=== PATIENT | male | born 1960 | race Caucasian/White ===

== ENCOUNTER 2016-11-14 11:32 | Emergency (ER) | payer OTHER ==
[~2016-11-14] VITALS: Ht 182.9 cm; Wt 136.1 kg
[~2016-11-14 11:32] MED LIST: ATORVASTATIN CA10 MG PO; BYSTOLIC 5MG5 MG PO; COMBIVENT1 ARO INH; COUMADIN5 M2 PO; ECOTRIN81 MG PO; FINASTERIDE5 MG PO; GLIPIZIDE XL10 MG PO; HYDROCODON-ACE1 EAC2 PO; IRON SUPPLEMEN325 MG PO; JANUVIA 50MG50 MG PO; LEVEMIR FLEX100 U/ML SC; LEVEMIR100 U/ML SC; LORAZEPAM1 MG PO; LOSARTAN POTAS100 MG PO; MAGNESIUM OXID400 MG PO; MEDROL4 M1 PO; METFORMIN ER500 MG PO; METFORMIN HYD1000 M1 PO; NATURAL IRON65 MG PO; NORVASC 5MG TAB5 MG PO; OXYBUTYNIN5 MG PO; OXYCODONE HCL5 M1 PO; PREVACID 30MG30 MG PO; RW; TERAZOSIN HCL10 MG PO; VALIUM5 M2 PO; ZOLPIDEM TART5 MG PO
--- NOTE | 2016-11-14 11:49 | ED GENERAL ADULT ---
History of Present Illness General Chief Complaint: Suture Removal/Wound Recheck Stated Complaint: SUTURE SITE RECHECK FOR INFECTION Source: patient Exam Limitations: no limitations Vital Signs & Intake/Output Vital Signs & Intake/Output Vital Signs Date Time Temp Pulse Resp B/P B/P Pulse O2 O2 Flow FiO2 Mean Ox Delivery Rate 11/14 1311 97.5 64 18 144/78 97 Room Air Room Air 11/14 1138 97.1 60 18 152/86 95 Room Air Allergies Coded Allergies: NO KNOWN ALLERGIES (11/02/13) Reconcile Medications Aspirin (Ecotrin) 81 MG ECT 1 TAB PO DAILY HEART (Reported) Atorvastatin Calcium (Lipitor) 10 MG TAB 1 TAB PO DAILY CHOLESTEROL (Reported ) Cephalexin (Keflex) 500 MG CAPSULE 1 CAP PO TID Cellulitis Diazepam (Valium) 5 MG TABLET 1 TAB PO Q8PRN PRN SPASM Ferrous Sulfate (Iron Supplement) 325 MG TABLET 1 TAB PO DAILY supplement ( Reported) Finasteride 5 MG TABLET 1 TAB PO DAILY BPH (Reported) Glipizide (Glipizide XL) [address] 1 TAB PO DAILY DIABETES (Reported) Hydrocodone/Acetaminophen (Hydrocodon-Acetaminophen 5-325) 1 EACH TABLET 1-2 TAB PO Q4P PRN PAIN Insulin Detemir (Levemir) 100 U/ML CORI 20 UNIT SC QPM DIABETES (Reported) Lansoprazole (Prevacid) 30 MG CAP 1 CAP PO DAILY GI (Reported) METFORMIN HCL (Metformin HCl ER) 1,[address] 2 TAB PO DAILY DIABETES ( Reported) Methylprednisolone (Medrol) 4 MG TABLET 1 TAB PO AD BACK PAIN MEDROL DOSE PACK Nebivolol (Bystolic) 5 MG TAB 1 TAB PO DAILY BP (Reported) Oxybutynin Chloride 5 MG TAB 1 TAB PO TID BLADDER (Reported) Oxycodone HCl 5 MG TABLET 1-2 TAB PO Q6P PRN pain Sitagliptin Phosphate (Januvia) 50 MG TAB 1 TAB PO DAILY DIABETES (Reported) Terazosin Hydrochloride (Terazosin HCl) 10 MG CAP 1 TAB PO QHS BPH (Reported) Warfarin Sodium (Coumadin) 5 MG TABLET 1 TAB PO DAILY blood thinner To be dosed according to INR. INR daily until stable. Goal INR 2-3 Zolpidem Tartrate 5 MG TAB 1 TAB PO PRN SLEEP (Reported) Triage Note: PT STATES THAT HE HAD SUTURES PLACED 7 DAYS AGO TO L HAND AND THAT THEY ARE NOT DUE TO COME OUT BUT HE IS WORRIED ABOUT INFECTION Triage Nurses Notes Reviewed? yes HPI: 56 yo M PMH HTN, DM presenting with concenr for wound infection. 7 days ago patient cut the dorsum of right second finger with saw, evaluated another hospital, sutures placed, scheduled for follow-up with PMD in 10 days for suture removal. For the past 2 days patient has noticed redness around the laceration site, minimal swelling, no warmth to touch, no increased pain, no purulent drainage. Denies fevers, chills, chest pain, shortness of breath. Patient has never been employed in the medical field, never been a group home resident, no Hx of MRSA. (PRANAV CHOU MD) Past History Travel History Traveled to [place] past 21 day No Medical History Any Pertinent Medical History? 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 Hx Contributory? Yes (PRANAV CHOU MD) Review of Systems Review of Systems Constitutional: Reports: no symptoms. EENTM: Reports: no symptoms. Respiratory: Reports: no symptoms. Cardiovascular: Reports: no symptoms. GI: Reports: no symptoms. Genitourinary: Reports: no symptoms. Musculoskeletal: Reports: no symptoms. Skin: Reports: change in skin color. Neurological/Psychological: Reports: no symptoms. Hematologic/Endocrine: Reports: no symptoms. Immunologic/Allergic: Reports: no symptoms. All Other Systems: Reviewed and Negative (PRANAV CHOU MD) Physical Exam Physical Exam General Appearance: well developed/nourished, no apparent distress, alert, awake Head: atraumatic Neck: normal inspection, full range of motion Respiratory: normal breath sounds, no respiratory distress, lungs clear Cardiovascular: edema, normal peripheral pulses Gastrointestinal: normal bowel sounds, non-tender Comments: Right hand: 4-5 cm healing laceration to dorsum of hand over right MTP joint/ proximal digit with sutures in place, mild erythema of laceration margins without edema, no TTP or purulent drainage, full ROM of MTP joint without pain, no motor or sensory deficits, No TTP over proximal flexor tendon sheath Core Measures ACS in differential dx? No CVA/TIA Diagnosis: No Severe Sepsis Present: No Septic Shock Present: No (JOSÉ ANTONIO MARTINEZ,PRANAV) Progress Differential Diagnoses I considered the following diagnoses in my evaluation of the patient: [ Cellulitis, joint infection] Plan of Care: Current Medications Sig/Karena Start time Last Medication Dose Stop Time Status Admin Morphine Sulfate 6 MG ONCE ONE 11/14 1215 CAN (Morphine) 11/14 1216 Sodium Chloride 1,000 ML BOLUS ONE 11/14 1215 CAN (Normal Saline 0.9%) 11/14 1414 Laboratory Tests 11/14/16 1206: Sodium Cancelled, Potassium Cancelled, Chloride Cancelled, Carbon Dioxide Cancelled, Anion Gap Cancelled, BUN Cancelled, Creatinine Cancelled, BUN/ Creatinine Ratio Cancelled, Glucose Cancelled, Calcium Cancelled, Total Bilirubin Cancelled, AST Cancelled, ALT Cancelled, Alkaline Phosphatase Cancelled, Total Protein Cancelled, Albumin Cancelled, Globulin Cancelled, Albumin/Globulin Ratio Cancelled, CBC w Diff Cancelled, WBC Cancelled, RBC Cancelled, Hgb Cancelled, Hct Cancelled, MCV Cancelled, MCH Cancelled, RDW Cancelled, Plt Count Cancelled, MPV Cancelled, PUBS [facility] Cancelled Physician MDM: 56 yo M presenting with concern for wound infection at laceration site sustained 7 days ago on saw. VSS, afebrile, wound exam as above. DDx: Routine healing, cellulitis, low concern for deep hand space infection, joint infection, necrotiizing fascitis, flexor tenosynovitis. Given erythema on exam in patient with DM, laceration site on hand with dirty mechanism of injury, will treat with abx. Keflex given no MRSA risck factors, 1st dose given in ED. Discharged with return precautions, plan to f/u with PMD in the next 2-3 days for suture removal and wound re-check. The plan of care was discussed with the patient who expressed agreement and understanding. (PRANAV CHOU MD) Initial ED EKG: none (JOSÉ ANTONIO MARTINEZ,PRANAV) Departure Departure Disposition: HOME OR SELF CARE Condition: Stable Clinical Impression Primary Impression: Cellulitis Referrals: TAWANNA MRATINEZ,TALHA Kincaid (PCP/Family) Additional Instructions: Take Keflex for the next 7 days. Follow-up with her primary care doctor in the next 2-3 days for suture removal and wound recheck. Return to the emergency for any worsening signs of infection, including spreading redness, increased pain, difficulty moving finger, or purulent drainage from wound site. Departure Forms: Customer Survey General Discharge Information Prescriptions: Current Visit Scripts Cephalexin (Keflex) 1 CAP PO TID #30 CAP (PRANAV CHOU MD) PA/CHANNEL MARKETING PROGRAM MANAGER Co-Sign Statement Statement: ED Attending supervision documentation- [] I saw and evaluated the patient. I have also reviewed all the pertinent lab results and diagnostic results. I agree with the findings and the plan of care as documented in the PA's/CHANNEL MARKETING PROGRAM MANAGER's documentation. [X] I have reviewed the ED Record and agree with the PA's/CHANNEL MARKETING PROGRAM MANAGER's documentation. [] Additions or exceptions (if any) to the PAs/CHANNEL MARKETING PROGRAM MANAGER's note and plan are summarized below: [] (JOLANTA MARTINEZ,SUZE) Critical Care Note Critical Care Note Critical Care Time: non-applicable (JOSÉ ANTONIO MARTINEZ,PRANAV)
[2016-11-14] MEDS ORDERED: KEFLEX500 M1 PO (12:41)
[2016-11-14 13:11] VITALS: BP 144/78
== END 2016-11-14 13:11 ==
LOC: ERH 11:32
DX: L03.113 Cellulitis of right upper limb (principal)

== ENCOUNTER 2016-11-19 18:05 | Emergency (ER) | payer OTHER ==
[~2016-11-19] VITALS: Ht 180.3 cm; Wt 136.1 kg
[~2016-11-19 18:05] MED LIST changes: +KEFLEX500 M1 PO
[2016-11-19 18:22] VITALS: BP 131/80
--- NOTE | 2016-11-19 18:47 | ED GENERAL ADULT ---
History of Present Illness General Chief Complaint: Suture Removal/Wound Recheck Stated Complaint: PT NEED SUTURE REMOVAL Source: patient Exam Limitations: no limitations Vital Signs & Intake/Output Vital Signs & Intake/Output Vital Signs Date Time Temp Pulse Resp B/P B/P Pulse O2 O2 Flow FiO2 Mean Ox Delivery Rate 11/19 1822 97.6 56 15 131/80 95 Room Air Room Air Allergies Coded Allergies: No Known Allergies (11/19/16) Reconcile Medications Aspirin (Ecotrin) 81 MG ECT 1 TAB PO DAILY HEART (Reported) Atorvastatin Calcium (Lipitor) 10 MG TAB 1 TAB PO DAILY CHOLESTEROL (Reported ) Cephalexin (Keflex) 500 MG CAPSULE 1 CAP PO TID Cellulitis Diazepam (Valium) 5 MG TABLET 1 TAB PO Q8PRN PRN SPASM Ferrous Sulfate (Iron Supplement) 325 MG TABLET 1 TAB PO DAILY supplement ( Reported) Finasteride 5 MG TABLET 1 TAB PO DAILY BPH (Reported) Glipizide (Glipizide XL) [address] 1 TAB PO DAILY DIABETES (Reported) Hydrocodone/Acetaminophen (Hydrocodon-Acetaminophen 5-325) 1 EACH TABLET 1-2 TAB PO Q4P PRN PAIN Insulin Detemir (Levemir) 100 U/ML CORI 20 UNIT SC QPM DIABETES (Reported) Lansoprazole (Prevacid) 30 MG CAP 1 CAP PO DAILY GI (Reported) METFORMIN HCL (Metformin HCl ER) 1,[address] 2 TAB PO DAILY DIABETES ( Reported) Methylprednisolone (Medrol) 4 MG TABLET 1 TAB PO AD BACK PAIN MEDROL DOSE PACK Nebivolol (Bystolic) 5 MG TAB 1 TAB PO DAILY BP (Reported) Oxybutynin Chloride 5 MG TAB 1 TAB PO TID BLADDER (Reported) Oxycodone HCl 5 MG TABLET 1-2 TAB PO Q6P PRN pain Sitagliptin Phosphate (Januvia) 50 MG TAB 1 TAB PO DAILY DIABETES (Reported) Terazosin Hydrochloride (Terazosin HCl) 10 MG CAP 1 TAB PO QHS BPH (Reported) Warfarin Sodium (Coumadin) 5 MG TABLET 1 TAB PO DAILY blood thinner To be dosed according to INR. INR daily until stable. Goal INR 2-3 Zolpidem Tartrate 5 MG TAB 1 TAB PO PRN SLEEP (Reported) Triage Note: PT TO ED FOR SUTURE REMOVAL. PT GOT SUTURES IN [place] S/P CUTTING HAND WITH SAW. PT DENIES COMPLICATIONS. RECEIVED TETANUS SHOT LAST WEEK. Triage Nurses Notes Reviewed? yes HPI: 56M WITH SUTURES PLACED ON LEFT INDEX FINGER 1 WEEK AGO AFTER CUTTING HIS HAND AT WORK (HE DOES NOT REMEMBER ON WHAT), RETURNS FOR SUTURE REMOVAL. 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 Past History Travel History Traveled to [place] past 21 day No Medical History Any Pertinent Medical History? 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 Hx Contributory? No Review of Systems Review of Systems Constitutional: Reports: no symptoms. All Other Systems: Reviewed and Negative Physical Exam Physical Exam General Appearance: well developed/nourished, no apparent distress Extremities: LEFT INDEX FINGER WOUND CLEAN AND DRY, HEALING WELL, NO PURULENCE, Core Measures ACS in differential dx? No CVA/TIA Diagnosis: No Severe Sepsis Present: No Septic Shock Present: No Progress Differential Diagnoses I considered the following diagnoses in my evaluation of the patient: SUTURE REMOVAL, INFECTED WOUND, WOUND DEHISCENCE Plan of Care: SUTURES REMOVED WITHOUT DIFFICULTY. BACITRACIN PLACED AND WOUND DRESSED BY NURSE. INSTRUCTED TO KEEP CLEAN AND DRY. Initial ED EKG: none Departure Departure Time of Disposition: 2037 Disposition: HOME OR SELF CARE Condition: Stable Clinical Impression Primary Impression: Visit for wound check Referrals: TAWANNA MARTINEZ,TALHA Kincaid (PCP/Family) Departure Forms: Customer Survey General Discharge Information Critical Care Note Critical Care Note Critical Care Time: non-applicable
== END 2016-11-19 18:49 ==
LOC: ERH 18:05
DX: S61.211D Laceration without foreign body of left index finger without damage to nail, subsequent encounter (principal)
CPT/HCPCS: 99281

== ENCOUNTER 2017-06-05 06:24 | Emergency (ER) | payer OTHER ==
[~2017-06-05] VITALS: Ht 180.3 cm; Wt 140.6 kg
[~2017-06-05 06:24] MED LIST changes: -ATORVASTATIN CA10 MG PO; +BYSTOLIC5 M1 PO; +FINASTERIDE5 M1 PO; +GLIPIZIDE ER10 M1 PO; +JANUVIA100 M1 PO; +LANSOPRAZOLE30 M2 PO; +LEVEMIR FL100 UNIT/1 SQ; +LIPITOR10 M1 PO; +LOSARTAN POTASS50 M1 PO; +METFORMIN HCL1000 M3 PO; +NIFEDIPINE ER30 M2 PO; +PATANOL5 ML OU; +PREDNISONE20 M1 PO; +PROVENTIL HFA6.7 GM INH; +TERAZOSIN HCL10 M1 PO; +ZITHROMAX250 M2 PO
[2017-06-05 07:09] VITALS: BP 132/77
--- NOTE | 2017-06-05 07:53 | ED INFLUENZA/URI COMPLAINT ---
History of Present Illness General Chief Complaint: Upper Respiratory Sx/Fever Stated Complaint: COLD SYMPTOMS Source: patient, old records Exam Limitations: no limitations Vital Signs & Intake/Output Vital Signs & Intake/Output Vital Signs Date Time Temp Pulse Resp B/P B/P Pulse O2 O2 Flow FiO2 Mean Ox Delivery Rate 06/05 0709 96.4 88 20 132/77 96 Room Air Allergies Coded Allergies: No Known Allergies (11/19/16) Reconcile Medications Atorvastatin Calcium (Lipitor) 10 MG TABLET 1 TAB PO DAILY HIGH CHOLESTROL ( Reported) Azithromycin (Zithromax) 250 MG TABLET 1 DP PO AD BRONCHITIS 2 the first day followed by 1 for days 2-5 Codeine Phosphate/Guaifenesi (Guaifen-Codeine 200-20 MG/10ML) 20 MG-200 MG/10 ML LIQUID 10 ML PO Q6HR PRN COUGH Finasteride 5 MG TABLET 1 TAB PO DAILY urinary retention (Reported) Glipizide (Glipizide ER) 10 MG TAB.ER.24 1 TAB PO DAILY DIABETES (Reported) Insulin Detemir (Levemir Flextouch) 100 UNIT/ML (3 ML) INSULN.PEN 45 UNITS SQ QPM DIABETES (Reported) Lansoprazole 30 MG CAPSULE.DR 1 CAP PO DAILY ACID REFLUX (Reported) Losartan Potassium 50 MG TABLET 1 TAB PO DAILY HIGH BLOOD PRESSURE (Reported) Metformin HCl (Metformin HCl ER) 1,000 MG [id number] 1 TAB PO BID DIABETES ( Reported) Nebivolol HCl (Bystolic) 5 MG TABLET 1 TAB PO DAILY HIGH BLOOD PRESSURE ( Reported) Nifedipine (Nifedipine ER) 30 MG TAB.ER.24 1 TAB PO DAILY BP (Reported) Olopatadine HCl (Patanol) 0.1 % DROPS 1 GTT OU AD PRN ALLERGIES (Reported) Sitagliptin Phosphate (Januvia) 100 MG TABLET 1 TAB PO DAILY DIABETES ( Reported) Terazosin HCl 10 MG CAPSULE 1 CAP PO DAILY URINARY RETENTION (Reported) Triage Note: PT TO ED C/O URI S/S X 1 WEEK. PT HAS BEEN ON ABX FOR 1 WEEK FOR STREP THROAT. STATES HE IS FEELING WORSE. C/O COUGH. AFEBRILE NOW. Triage Nurses Notes Reviewed? yes Onset: Gradual Duration: week(s): (1), constant Timing: recent history Severity: moderate Severity Numbers: 5 Prior Episodes/Possible Cause: occassional episodes No Modifying Factors: none Associated Symptoms: cough, nasal congestion, nasal drainage, sore throat HPI: 57-year-old male with history of hypertension diabetes presents to ER for evaluation complaining of cough productive of clear sputum, sore throat rhinorrhea nasal congestion sinus pressure and generalized bodyaches for the past 1 week. He is placed on amoxicillin last week however states his symptoms persist. No fever no chills. No shortness of breath chest pain abdominal pain nausea vomiting diarrhea. No sick contacts. (Tyrone Tenorio) Past History Travel History Traveled to [place] past 21 day No Medical History Any Pertinent Medical History? 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 Hx Contributory? No (Tyrone Tenorio) Review of Systems Review of Systems Constitutional: Reports: see HPI. All Other Systems: Reviewed and Negative Comments Review of systems: See HPI, All other systems negative. Constitutional, no chills no fever, HEENT: sore throat congestion, no ear pain Cardiovascular: No chest pain , no palpitation Skin: no rashes, no change in skin Respiratory: No dyspnea cough sputum no hemoptysis GI: No nausea no vomiting, no diarrhea, Muscle skeletal: No joint pain, no back pain, no neck pain, Neurologic: , no headache Heme/endocrine: No bruising Immunology: No lymphadenopathy (Tyrone Tenorio) Physical Exam Physical Exam General Appearance: well developed/nourished, alert, awake Ears, Nose, Throat: normal ENT inspection, moist mucous membrane, hearing grossly normal Comments: Well-developed well-nourished patient in no apparent distress. Head/Face: Atraumatic, no maxillary/frontal sinus tenderness, no facial swelling Eyes: PERRL, EOMI, no conjunctival injection Ear:External auditory canal and Tympanic membranes clear, no erythema, no FB. Nose: atraumatic.Normal inspection: No bleeding Throat: Moist mucous membranes.Pharynx normal. No pharyngeal erythema/exudate seen. No stridor/drooling or assymetry. No swelling or edema. Neck: Supple, no lymphadenopathy, FROM Back: FROM Cardiovascular: Regular rate and rhythms no murmurs Respiratory: No respiratory distress. Patient speaking in full complete sentences. Breath sounds clear to auscultation bilaterally: NO W/R/R Extremities: full range of motion Neuro: awake, alert, and oriented to person, place and time. There were no obvious focal neurologic abnormalities. Skin: Warm & dry;No appreciable rash on exposed skin Psych: Mood affect normal, normal memory normal judgment. Core Measures Sepsis Present: No Sepsis Focused Exam Completed? No (Lindsey PRESLEY,Tyrone) Progress Differential Diagnosis: influenza, otitis, pneumonia, sinusitis, bronchitis Plan of Care: Orders Procedure Date/time Status XRY-CHEST XRAY, TWO VIEWS 06/05 757 Active X-ray ordered patient speaking full complete sentences nontoxic appearing lungs are clear auscultation I discussed with the patient at length all of their results. I had an extensive conversation regarding need for close follow up with their primary care physician this week as well as return precautions. I answered all of their questions, they feel comfortable with the plan and follow-up care. I discussed with the patient/family the medications that they will receive. I gave them signs and symptoms that could indicate an adverse reaction. I have advised them to limit their activities until they can see how they respond to the medication. Diagnostic Imaging: Viewed by Me: Radiology Read. Discussed w/RAD: Radiology Read. Radiology Impression: PATIENT: REGINE SOARES PRESENT AGE: 57 PATIENT ACCOUNT NO: [id number] : 62 LOCATION: [facility] ORDERING PHYSICIAN: Tyrone PRESLEY SERVICE DATE: 06/05/17 EXAM TYPE: RAD - XRY-CHEST XRAY, TWO VIEWS EXAMINATION: XR CHEST CLINICAL INFORMATION: Cough and fever COMPARISON: 03/10/2017 TECHNIQUE: 2 views of the chest were obtained. FINDINGS: The lungs are well expanded. There is no consolidation, edema, or effusion. Mild bronchial wall thickening. No pneumothorax. The cardiomediastinal silhouette is unchanged. No acute osseous abnormality. IMPRESSION: No dense consolidation. Bronchial wall thickening can be seen with a small airways process such as asthma or atypical/viral infection. DICTATED BY: Seth Porter MD DATE/TIME DICTATED:06/05/17820 DETECTIVE INVESTIGATOR: [place] DATE/TIME TRANSCRIBED:06/05/17820 CONFIDENTIAL, DO NOT COPY WITHOUT APPROPRIATE AUTHORIZATION. <Electronically signed in Other Vendor System> SIGNED BY: Seth Porter MD 06/05/17826 Initial ED EKG: none (Tyrone Tenorio) Departure Departure Time of Disposition: 830 Disposition: HOME OR SELF CARE Condition: Stable Clinical Impression Primary Impression: Bronchitis Referrals: Chikis MARTINEZ,Pablo Kincaid (PCP/Family) Additional Instructions: azithromycin as directed, guaifensein with codeine for your cough. use caution as this cough medication is a narcotic and may make you drowsy. take tylenol or motrin every 4-6 hours. follow up with your pmd this week. return with any concerns Departure Forms: Customer Survey General Discharge Information Prescriptions: Current Visit Scripts Azithromycin (Zithromax) 1 DP PO AD #6 TAB 2 the first day followed by 1 for days 2-5 Codeine Phosphate/Guaifenesi (Guaifen-Codeine 200-20 MG/10ML) 10 ML PO Q6HR PRN COUGH #150 ML (yTrone Tenorio) PA/AUTOMATION DRIVER Co-Sign Statement Statement: ED Attending supervision documentation- I saw and evaluated the patient. I have also reviewed all the pertinent lab results and diagnostic results. I agree with the findings and the plan of care as documented in the PA's/AUTOMATION DRIVER's documentation. x I have reviewed the ED Record and agree with the PA's/AUTOMATION DRIVER's documentation. [] Additions or exceptions (if any) to the PAs/AUTOMATION DRIVER's note and plan are summarized below: [] (Guera MARTINEZ,Meir)
--- NOTE | 2017-06-05 08:27 | RADIOLOGY REPORT ---
EXAMINATION: XR CHEST CLINICAL INFORMATION: Cough and fever COMPARISON: 03/10/2017 TECHNIQUE: 2 views of the chest were obtained. FINDINGS: The lungs are well expanded. There is no consolidation, edema, or effusion. Mild bronchial wall thickening. No pneumothorax. The cardiomediastinal silhouette is unchanged. No acute osseous abnormality. IMPRESSION: No dense consolidation. Bronchial wall thickening can be seen with a small airways process such as asthma or atypical/viral infection.
[2017-06-05] MEDS ORDERED: ZITHROMAX250 M2 PO (08:32)
[2017-06-05] MEDS ORDERED: GUAIFEN-CODEINE10 ML PO (08:32)
== END 2017-06-05 08:42 ==
LOC: ERH 06:24
DX: J40 Bronchitis, not specified as acute or chronic (principal)
CPT/HCPCS: 71046

== ENCOUNTER 2017-06-20 13:10 | Emergency (ER) | payer OTHER ==
[~2017-06-20] VITALS: Ht 180.3 cm; Wt 138.3 kg
[~2017-06-20 13:10] MED LIST changes: +GUAIFEN-CODEINE10 ML PO
[2017-06-20 13:27] LABS: ABSOLUTE BASOPHIL COUNT 0.1 /CUMM (0.0-0.2); ABSOLUTE EOSINOPHIL COUNT 0.2 /CUMM (0.0-0.7); ABSOLUTE GRANULOCYTE CT 7.7 /CUMM (1.4-6.5); ABSOLUTE LYMPH COUNT 2.5 /CUMM (1.2-3.4); ABSOLUTE MONOCYTE COUNT 0.7 /CUMM (0.10-0.60); BASOPHIL % 0.9 % (0.0-2.0); EOSINOPHIL % 1.7 % (0-5); GRANULOCYTE % 68.7 % (42.2-75.2); HEMATOCRIT 42.8 % (42-52); MEAN CORPUSCULAR HGB 30.1 PG (27.0-31.0); MEAN CORPUSCULAR HGB CONC 33.5 G/DL (33.0-37.0); MEAN CORPUSCULAR VOLUME 89.7 FL (80.0-94.0); MEAN PLATELET VOLUME 8.7 FL (7.4-10.4); PLATELET COUNT 217 /CUMM (130-400); RBC DISTRIBUTION WIDTH 14.4 % (11.5-14.5); RED BLOOD CELL CT 4.77 /CUMM (4.70-6.10); WHITE BLOOD CELL COUNT 11.3 /CUMM (4.8-10.8)
--- NOTE | 2017-06-20 16:27 | CT SCAN REPORT ---
EXAMINATION: CT ABDOMEN AND PELVIS WITH CONTRAST CLINICAL INFORMATION: Left lower quadrant pain. COMPARISON: CT abdomen 02/12/2008. TECHNIQUE: Multidetector volumetric imaging was performed of the abdomen and pelvis following IV administration of 95 mL of Optiray 320 intravenous contrast. Sagittal and coronal reformatted images were obtained on the technologist's workstation. DLP: 1579.25 mGy-cm FINDINGS: LUNG BASES: The visualized lung bases are unremarkable. LIVER, GALLBLADDER, AND BILIARY TREE: There is marked low attenuation of liver parenchyma due to fatty change. No focal liver lesion. No intrahepatic bile duct dilatation. The gallbladder is unremarkable with no evidence of radiopaque gallstones, gallbladder wall thickening, or obvious pericholecystic inflammatory changes. PANCREAS: Unremarkable. SPLEEN: Unremarkable. ADRENAL GLANDS: Unremarkable. KIDNEYS AND URETERS: The kidneys are normal in size, shape, and attenuation. No hydronephrosis, hydroureter, or calculi seen. There is a 2.2 cm cortical cyst at the mid upper pole of left kidney. No perinephric stranding. BLADDER: Unremarkable. GASTROINTESTINAL TRACT: There is diverticulosis of the left colon and sigmoid. There is subtle edema of the proximal sigmoid distal descending colon in the pericolonic fat consistent with a mild diverticulitis. No abscess or perforation. No obstruction. Moderate volume of stool scattered in colon. The appendix is normal. The small-bowel loops are unremarkable. ABDOMINAL WALL: No significant hernia is appreciated. LYMPH NODES: Normal. VASCULAR: Atherosclerotic vascular wall calcification of aorta and iliac vessels without aneurysm. PELVIC VISCERA: Unremarkable. OSSEOUS STRUCTURES: Degenerative disc disease with multilevel vacuum disc phenomena, endplate spurring and facet joint arthrosis. There is compression deformity of the anterior inferior endplate L1. Compression deformity at the superior endplate of L4 with about 50% loss of height of the vertebral body. Status post fusion of the lumbosacral junction with transpedicular screws. Status post right hip replacement. Degenerative joint disease of left hip with joint narrowing and spurring of acetabulum and femoral head. IMPRESSION: 1. Diverticulosis of colon. Small area of diverticulitis at the proximal sigmoid distal descending colon. No perforation or abscess. 2. Diffuse fatty change of liver.
--- NOTE | 2017-06-20 17:08 | ED GI/GU/ABDOMINAL COMPLAINT ---
History of Present Illness General Chief Complaint: Abdominal Pain/Flank Pain Stated Complaint: LLQ ABD PAIN, X 3 Source: patient, family Exam Limitations: no limitations Vital Signs & Intake/Output Vital Signs & Intake/Output Vital Signs Date Time Temp Pulse Resp B/P B/P Pulse O2 O2 Flow FiO2 Mean Ox Delivery Rate 06/20 1313 96.5 78 16 120/73 Room Air Allergies Coded Allergies: No Known Allergies (11/19/16) Reconcile Medications Atorvastatin Calcium (Lipitor) 10 MG TABLET 1 TAB PO DAILY HIGH CHOLESTROL ( Reported) Azithromycin (Zithromax) 250 MG TABLET 1 DP PO AD BRONCHITIS 2 the first day followed by 1 for days 2-5 Ciprofloxacin HCl (Cipro) 500 MG TABLET 1 TAB PO BID PRN DIVERTICULITIS Codeine Phosphate/Guaifenesi (Guaifen-Codeine 200-20 MG/10ML) 20 MG-200 MG/10 ML LIQUID 10 ML PO Q6HR PRN COUGH Finasteride 5 MG TABLET 1 TAB PO DAILY urinary retention (Reported) Glipizide (Glipizide ER) 10 MG TAB.ER.24 1 TAB PO DAILY DIABETES (Reported) Insulin Detemir (Levemir Flextouch) 100 UNIT/ML (3 ML) INSULN.PEN 45 UNITS SQ QPM DIABETES (Reported) Lansoprazole 30 MG CAPSULE.DR 1 CAP PO DAILY ACID REFLUX (Reported) Losartan Potassium 50 MG TABLET 1 TAB PO DAILY HIGH BLOOD PRESSURE (Reported) Metformin HCl (Metformin HCl ER) 1,000 MG [id number] 1 TAB PO BID DIABETES ( Reported) Metronidazole (Flagyl) 500 MG TABLET 1 TAB PO 4 TIMES/DAY DIVERTICULITIS Nebivolol HCl (Bystolic) 5 MG TABLET 1 TAB PO DAILY HIGH BLOOD PRESSURE ( Reported) Nifedipine (Nifedipine ER) 30 MG TAB.ER.24 1 TAB PO DAILY BP (Reported) Olopatadine HCl (Patanol) 0.1 % DROPS 1 GTT OU AD PRN ALLERGIES (Reported) Sitagliptin Phosphate (Januvia) 100 MG TABLET 1 TAB PO DAILY DIABETES ( Reported) Terazosin HCl 10 MG CAPSULE 1 CAP PO DAILY URINARY RETENTION (Reported) Triage Note: 57 Y/O MALE C/O LLQ PAIN X 3 DAYS. HX DIVERTICULITIS AND STATES THIS FEELS "THE SAME". DENIES N/V/D. DENIES URINARY SYMPTOMS. DENIES FEVERS Triage Nurses Notes Reviewed? yes Onset: Gradual Duration: getting worse Timing: recent history Quality/Severity: moderate Severity Numbers: 5 Radiation: no radiation HPI: Patient is a 57-year-old male with a past medical history of diabetes hypertension hyperlipidemia and GERD who presents emergency room with concerns of a two-week history of intermittent left lower quadrant abdominal pain however in the past 12 hours symptoms of abdominal pain has worsened. Patient denies any fever chills nausea vomiting diarrhea melena or bright red blood Patient can't tolerate by mouth patient Past History Travel History Traveled to [place] past 21 day No Medical History Any Pertinent Medical History? 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 Hx Contributory? No Review of Systems Review of Systems Constitutional: Reports: no symptoms. EENTM: Reports: no symptoms. Respiratory: Reports: no symptoms. Cardiovascular: Reports: no symptoms. GI: Reports: see HPI, abdominal pain. Genitourinary: Reports: no symptoms. Musculoskeletal: Reports: no symptoms. Skin: Reports: no symptoms. Neurological/Psychological: Reports: no symptoms. Hematologic/Endocrine: Reports: no symptoms. Immunologic/Allergic: Reports: no symptoms. All Other Systems: Reviewed and Negative Physical Exam Physical Exam General Appearance: no apparent distress, obese Head: atraumatic Eyes: Bilateral: normal appearance. Ears, Nose, Throat, Mouth: moist mucous membrane Neck: normal inspection Respiratory: normal breath sounds, no respiratory distress Cardiovascular: regular rate/rhythm Gastrointestinal: normal bowel sounds, soft, LLQ PAIN NO REBOUND TENDERNESS Back: normal inspection Neurologic/Psych: no motor/sensory deficits, awake Skin: intact, normal color, warm/dry Core Measures ACS in differential dx? No Sepsis Present: No Sepsis Focused Exam Completed? No Progress Differential Diagnosis: AAA, AMI, appendicitis, biliary colic, bowel obstruction , colon cancer, cholecystitis, diverticulitis, epididymitis, esophageal varices, gastritis, hepatitis, hernia, hemorrhoids, ischemic bowel, inflamm bowel dis, Lazara-Yolanda tear, orchitis, pancreatitis, prostatitis, peptic ulcer, PUD/GERD, perforated viscous, pyelonephritis, SBO, testicular torsion, ureterolithiasis, urinary retention, urethritis, UTI/pyelo Plan of Care: Orders Procedure Date/time Status URINALYSIS 06/20 1314 Complete COMPREHENSIVE METABOLIC PANEL 06/20 1314 Complete CBC WITHOUT DIFFERENTIAL 06/20 1314 Complete Laboratory Tests 06/20/17 1324: Urine Color YEL, Urine Clarity CLEAR, Urine pH 6.0, Ur Specific [place] >= 1.030 , Urine Protein NEG, Urine Ketones TRACE H, Urine Nitrite NEG, Urine Bilirubin NEG, Urine Urobilinogen 0.2, Ur Leukocyte Esterase NEG, Ur Microscopic EXAM NOT REQUIRED, Urine Hemoglobin NEG, Urine Glucose NEG 06/20/17 1315: Anion Gap 15, Estimated GFR > 60, BUN/Creatinine Ratio 26.3 H, Glucose 196 H, Calcium 9.4, Total Bilirubin 0.4, AST 49, ALT 116 H, Alkaline Phosphatase 88, Total Protein 7.4, Albumin 4.3, Globulin 3.1, Albumin/Globulin Ratio 1.4, CBC w Diff NO MAN DIFF REQ, RBC 4.77, MCV 89.7, MCH 30.1, RDW 14.4, MPV 8.7, Gran % 68.7, Lymphocytes % 22.4, Monocytes % 6.3, Eosinophils % 1.7, Basophils % 0.9, Absolute Granulocytes 7.7 H, Absolute Lymphocytes 2.5, Absolute Monocytes 0.7 H, Absolute Eosinophils 0.2, Absolute Basophils 0.1, PUBS MCHC 33.5 Patient has concerns of uncomplicated diverticulitis, patient can tolerate by mouth afebrile no leukocytosis nontoxic-appearing no apparent distress I had a extensive conversation with patient that if symptoms worsen such as fever or nausea to return to the emergency room and he will comply. Patient was strongly advised to follow-up with discharge instructions and plan and he will comply Diagnostic Imaging: Viewed by Me: CT Scan. Radiology Impression: acute abnormality Initial ED EKG: none Comments: PATIENT: REGINE SOARES PRESENT AGE: 57 PATIENT ACCOUNT NO: [id number] : 62 LOCATION: [facility] ORDERING PHYSICIAN: Tyrone PRESLEY SERVICE DATE: 06/20/17-0672 EXAM TYPE: CAT - CT ABD & PELVIS W IV CONTRAST EXAMINATION: CT ABDOMEN AND PELVIS WITH CONTRAST CLINICAL INFORMATION: Left lower quadrant pain. COMPARISON: CT abdomen 02/12/2008. TECHNIQUE: Multidetector volumetric imaging was performed of the abdomen and pelvis following IV administration of 95 mL of Optiray 320 intravenous contrast. Sagittal and coronal reformatted images were obtained on the technologist's workstation. DLP: 1579.25 mGy-cm FINDINGS: LUNG BASES: The visualized lung bases are unremarkable. LIVER, GALLBLADDER, AND BILIARY TREE: There is marked low attenuation of liver parenchyma due to fatty change. No focal liver lesion. No intrahepatic bile duct dilatation. The gallbladder is unremarkable with no evidence of radiopaque gallstones, gallbladder wall thickening, or obvious pericholecystic inflammatory changes. PANCREAS: Unremarkable. SPLEEN: Unremarkable. ADRENAL GLANDS: Unremarkable. KIDNEYS AND URETERS: The kidneys are normal in size, shape, and attenuation. No hydronephrosis, hydroureter, or calculi seen. There is a 2.2 cm cortical cyst at the mid upper pole of left kidney. No perinephric stranding. BLADDER: Unremarkable. GASTROINTESTINAL TRACT: There is diverticulosis of the left colon and sigmoid. There is subtle edema of the proximal sigmoid distal descending colon in the pericolonic fat consistent with a mild diverticulitis. No abscess or perforation. No obstruction. Moderate volume of stool scattered in colon. The appendix is normal. The small-bowel loops are unremarkable. ABDOMINAL WALL: No significant hernia is appreciated. LYMPH NODES: Normal. VASCULAR: Atherosclerotic vascular wall calcification of aorta and iliac vessels without aneurysm. PELVIC VISCERA: Unremarkable. OSSEOUS STRUCTURES: Degenerative disc disease with multilevel vacuum disc phenomena, endplate spurring and facet joint arthrosis. There is compression deformity of the anterior inferior endplate L1. Compression deformity at the superior endplate of L4 with about 50% loss of height of the vertebral body. Status post fusion of the lumbosacral junction with transpedicular screws. Status post right hip replacement. Degenerative joint disease of left hip with joint narrowing and spurring of acetabulum and femoral head. IMPRESSION: 1. Diverticulosis of colon. Small area of diverticulitis at the proximal sigmoid distal descending colon. No perforation or abscess. 2. Diffuse fatty change of liver. 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 <Electronically signed in Other Vendor System> SIGNED BY: Kevin Hart MD Departure Departure Disposition: HOME OR SELF CARE Condition: Stable Clinical Impression Primary Impression: Diverticulitis Referrals: Chikis MARTINEZ,Pablo Kincaid (PCP/Family) Rishi Denney MD Additional Instructions: As discussed BEGIN A 48 hour regimen of clear liquid bland diet and plenty water for hydration, if symptoms worsen or IF YOU develop any new concerning symptoms such as fever or vomiting return to the emergency room. Tomorrow please follow up and establish labor relations specialist Dr. Denney, begin the prescription of Cipro Flagyl as directed, prescription is awaiting at [facility]. Departure Forms: Customer Survey General Discharge Information Prescriptions: Current Visit Scripts Ciprofloxacin HCl (Cipro) 1 TAB PO BID PRN DIVERTICULITIS #20 TAB Metronidazole (Flagyl) 1 TAB PO 4 TIMES/DAY #40 TAB
[2017-06-20] MEDS ORDERED: FLAGYL500 MG PO (17:34)
[2017-06-20] MEDS ORDERED: CIPRO500 M1 PO (17:34)
[2017-06-20 17:45] VITALS: BP 122/66
== END 2017-06-20 18:22 ==
LOC: ERH 13:10
PROVIDERS: Emergency Medicine
DX: K57.92 Diverticulitis of intestine, part unspecified, without perforation or abscess without bleeding (principal); I10 Essential (primary) hypertension; Z87.891 Personal history of nicotine dependence
CPT/HCPCS: 74177; 81003